=== PATIENT | female | born 1965 | race Caucasian/White ===

== ENCOUNTER 2022-08-22 05:06 | Emergency (ER) | payer BC ==
[~2022-08-22] VITALS: Ht 167.6 cm; Wt 90.7 kg
--- NOTE | 2022-08-22 05:17 | NUR ---
Placed in room 8 . Placed on potline monitor, blood pressure machine and pulse oximeter. To gown for exam. Side rails up.
[2022-08-22 05:18] VITALS: BP_SYST 145
--- NOTE | 2022-08-22 05:30 | NUR ---
ER at bedside examining patient.
--- NOTE | 2022-08-22 05:55 | NUR ---
Patient given written and verbal discharge instructions and verbalizes understanding. ER MD discussed with patient the results and treatment provided. Patient in stable condition. ID arm band removed. no Rx of given. Patient educated on pain management and to follow up with PMD. Pain Scale 0/10. Opportunity for questions provided and answered. Medication side effect fact sheet provided.
[2022-08-22 05:56] VITALS: BP_SYST 139
== END 2022-08-22 05:55 | disposition home or self-care (01) ==
LOC: SED 05:06
DX: R00.2 Palpitations (principal); R07.9 Chest pain, unspecified; I10 Essential (primary) hypertension; Z79.899 Other long term (current) drug therapy
CPT/HCPCS: 93005; 99283